=== PATIENT | female | born 1985 | race American Indian/Alaskan Native ===

== ENCOUNTER 2020-12-26 16:11 | Emergency (ER) | payer SELFPAY ==
[2020-12-26] MEDS ORDERED: LORazepam 1 MG TAB PO ONE ×2 (17:01→22:20)
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
[2020-12-26 18:12] VITALS: BP 132/95
== END 2020-12-26 23:04 | disposition home or self-care (01) ==
LOC: ED 16:11
DX: F41.0 Panic disorder [episodic paroxysmal anxiety] (principal); Z79.899 Other long term (current) drug therapy; V49.69XA Unspecified car occupant injured in collision with other motor vehicles in traffic accident, initial encounter; Y93.89 Activity, other specified; Y92.488 Other paved roadways as the place of occurrence of the external cause; Y99.8 Other external cause status
CPT/HCPCS: 99282